=== PATIENT | male | born 1975 | race Caucasian/White ===

== ENCOUNTER 2019-12-26 13:30 | Outpatient (RCR) | payer BC, SELFPAY ==
--- NOTE | 2019-09-28 13:48 | STOPEVAL ---
SPEECH THERAPY INITIAL EVALUATION: Thank you for referring Salinas Jimenez to [facility]. Salinas would benefit from outpatient speech therapy to improve receptive and expression communication x2 week 3. Please review, sign, date and return this plan of care ZAK. I agree with and certify that the following plan of care is medically necessary. Referring Physician Date Attending Provider: PHYSICIAN NOT ON STAFF *ST Outpatient Evaluation Start: 09/28/19 12:46 Freq: Status: Active Protocol: Document 09/28/19 12:30 BECHERERT (Rec: 09/28/19 13:38 BECHERERT [email or web address]) Therapy Assessment Status Assessment Status Assessment Status Evaluation Outpatient Past Medical History Neurological History Hx Cerebrovascular Accident (CVA) Yes Hx Seizures Yes Cardiovascular History Hx Cardiac Disorders No Significant History Respiratory History Hx Tracheostomy Yes: removed end of August 2019 Genitourinary History Hx Genitourinary Disorders No Significant History Musculoskeletal History Hx Musculoskeletal Disorders No Significant History Hematological History Hx Hematological Disorders No Significant History Endocrine History Hx Endocrine Disorders No Significant History HEENT History Hx HEENT Disorders No Significant History Integumentary History Hx Skin Disorders No Significant History Reproductive History Hx Reproductive Disorders No Significant History Psychosocial History Hx Depression Yes Pain History History of Any Previous or Ongoing No Significant History Instance of Pain Anesthesia History Hx Anesthesia Reactions No Significant History Evaluation Information Problem Diagnosis CVA Onset 07-11-2019 Additional Evaluation Detail Pt was admitted to [facility] in [place] X 5-6 weeks; had tracheostomy due to respiratory failure, PEG tube r/t dysphagia. Went to [facility] in [facility] x5 days for rehab. Discharged September 20, 2019. 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 Prior Level of Function Home Setting Home Type House Living Situation With Parent Prior Swallow Level Prior Intake Method Oral Prior Diet Regular (Level 7 Diet) Prior Liquid Consistency Thin (Level 0 Diet) Prior Cognition/Communication
--- NOTE | 2019-09-28 14:28 | PTOPEVAL ---
PHYSICAL THERAPY EVALUATION AND DISCHARGE 09-28-2019 The PT evaluation was performed with Mr. Jimenez today. He demonstrated good dynamic and static standing balance, good LE strength and activity level. 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 Additional PT treatment is not indicated at this time. Discussed with him to continue to increase his activity level and endurance with activity, with rest as needed. He voiced understanding and agreed to discharge from PT services. Thank you for referring Salinas Jimenez to [facility]. Please review, sign, date and return this plan of care [facility]. I agree with and certify that the following plan of care is medically necessary. Referring Physician Date Attending Provider: Dr. Taylor Kumar *PT Outpatient Evaluation Start: 09/28/19 13:34 Document 09/28/19 13:25 ELLEN (Rec: 09/28/19 14:18 ELLEN [id number]) Outpatient Past Medical History Past Medical History Source of Past Medical History Patient Neurological History Hx Seizures Yes: had seizures with hospitalization for ICH Cardiovascular History Hx Hypertension Yes: meds control Respiratory History Hx Other Respiratory Disorders Yes: previous smoker- stop since hospitalization Gastrointestinal History Hx Other Gastrointestinal Disorders Yes: have feeding tube, to be removed next week Genitourinary History Hx Genitourinary Disorders No Significant History Musculoskeletal History Hx Musculoskeletal Disorders No Significant History Endocrine History Hx Endocrine Disorders No Significant History HEENT History Hx HEENT Disorders No Significant History Other History Hx Other Medical Conditions Yes: previous alcolhol abuse- none since hospitalization Evaluation Information Problem Diagnosis CVA, intraparenchymal hemorrhage of brain Onset July 11, 2019 Subjective Information to hospital July 11 2019; was Query Text:As Reported By Patient/ intubated, had seizures, Family feeding tube; in pt rehab and returned home one week ago; Prior Level of Function Activity Level (Last 3 Months) Occupation vegetable ii farmworker Dominance Right Activity of Daily Living Ability Independent Indoor/Home Mobility Independent Community Mobility Independent Stairs Ability Independent Functional Cognition (Planning, Shopping Independent , Taking Medications) Cooking Yes Cleaning Yes Laundry Yes Shopping Yes Driving Yes Medications Home Meds (Include: OTC, RX, Vitamins, HTN meds, zoloft, blood Herbals, Dose, Route,and Frequency) thin
--- NOTE | 2019-09-28 15:18 | OTOPEVAL ---
OCCUPATIONAL THERAPY EVALUATION SUMMARY AND DISCHARGE NOTE Thank you for referring Salinas Jimenez to [facility]. Minimal deficits noted with weakness in the RUE and he is independent with strengthening home program. No care plan initiated as he is being discharged at this time. Please review, sign, date and return this plan of care ZAK. I agree with and certify that the following plan of care is medically necessary. Referring Physician Date Referring Provider: Dr. Taylor Kumar *OT Outpatient Evaluation Therapy Assessment Status Assessment Status Assessment Status Evaluation Outpatient Past Medical History Past Medical History Source of Past Medical History Patient Neurological History Hx Seizures Yes: had seizures with hospitalization for ICH Cardiovascular History Hx Hypertension Yes: meds control Respiratory History Hx Other Respiratory Disorders Yes: previous smoker- stop since hospitalization Gastrointestinal History Hx Other Gastrointestinal Disorders Yes: have feeding tube, to be removed next week Genitourinary History Hx Genitourinary Disorders No Significant History Musculoskeletal History Hx Musculoskeletal Disorders No Significant History Hematological History Hx Hematological Disorders No Significant History Endocrine History Hx Endocrine Disorders No Significant History HEENT History Hx HEENT Disorders No Significant History Integumentary History Hx Skin Disorders No Significant History Reproductive History Hx Reproductive Disorders No Significant History Psychosocial History Hx Depression Yes Pain History History of Any Previous or Ongoing No Significant History Instance of Pain Anesthesia History Hx Anesthesia Reactions No Significant History Other History Hx Other Medical Conditions Yes: previous alcolhol abuse- none since hospitalization Evaluation Information Problem Diagnosis s/p ICH Onset July 11, 2019 Additional Evaluation Detail Pt was admitted to [facility] in [place] for 5-6 weeks; was intubated and had a feeding tube. Went to [facility] in [place] reportedly x5 days for rehab. Discharged September 20, 2019. 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 Subjective Information Patient reports no functional Query Text:As Reported By Patient/ deficits at this time. States Family
--- NOTE | 2019-10-18 16:01 | STOPEVAL ---
SPEECH THERAPY PROGRESS REPORT: Thank you for referring Salinas Jimenez to [facility]. Pt has completed [address]; as a result, he has exhibited improvement in all areas of language. Immediate recall was also noted to be moderate to severely impaired; (R) ear hearing loss may also interfere at times. It is recommended to continue skilled outpatient ST. Please review, sign, date and return this plan of care ZAK. I agree with and certify that the following plan of care is medically necessary. Referring Physician Date Attending Provider: PHYSICIAN NOT ON STAFF *ST Outpatient re-Evaluation Start: 09/28/19 12:46 Freq: Status: Active Protocol: Document 10/18/19 12:30 BECHERERT (Rec: 10/18/19 16:00 BECHERERT [id number]) Therapy Assessment Status Assessment Status Assessment Status Re-evaluation Outpatient Past Medical History Past Medical History Source of Past Medical History Patient Neurological History Hx Seizures Yes: had seizures with hospitalization for ICH Cardiovascular History Hx Hypertension Yes: meds control Respiratory History Hx Other Respiratory Disorders Yes: previous smoker- stop since hospitalization Gastrointestinal History Hx Other Gastrointestinal Disorders Yes: have feeding tube, to be removed next week Genitourinary History Hx Genitourinary Disorders No Significant History Musculoskeletal History Hx Musculoskeletal Disorders No Significant History Hematological History Hx Hematological Disorders No Significant History Endocrine History Hx Endocrine Disorders No Significant History HEENT History Hx HEENT Disorders No Significant History Integumentary History Hx Skin Disorders No Significant History Reproductive History Hx Reproductive Disorders No Significant History Psychosocial History Hx Depression Yes Pain History History of Any Previous or Ongoing No Significant History Instance of Pain Anesthesia History Hx Anesthesia Reactions No Significant History Other History Hx Other Medical Conditions Yes: previous alcohol abuse- none since hospitalization Pain Assessment Timing of Pain Assessment Timing of Pain Assessment Assessment Self Report Self Report Pain Level 0 Pain Score Pain Score 0: Self Report Language Evaluation Auditory Comprehension Response Latency Mild Deficits Factors Limiting Auditory Comprehension Aphasia Overall Auditory Comprehension Ability Mild Deficits Additional Auditory Comprehension Pt is able to follow 2 step Comments directives with 100% accuracy but may need an occasional repetition. Pt is able to foll
--- NOTE | 2019-10-30 14:45 | PCSTNOTE ---
Patient called & cancelled scheduled appointment this date due to having transportation issues.
--- NOTE | 2019-11-15 14:34 | STOPEVAL ---
SPEECH THERAPY PROGRESS REPORT/POC UPDATE: Thank you for referring Salinas Jimenez to [facility]. Salinas has completed [address] visits and has demonstrated continued improvement in all areas of language. Prognosis for further improvement is good; therefore, continued skilled ST is recommended x2 week 4. Please review, sign, date and return this plan of care ZAK. I agree with and certify that the following plan of care is medically necessary. Referring Physician Date Admitting Provider: Attending Provider: PHYSICIAN NOT ON STAFF Referring Provider: * Outpatient Evaluation Start: 09/28/19 12:46 Freq: Status: Active Protocol: Document 11/15/19 12:30 AYDIN (Rec: 11/15/19 13:37 AYDIN [email or web address]) Therapy Assessment Status Assessment Status Assessment Status Re-evaluation Outpatient Past Medical History Past Medical History Source of Past Medical History Patient Neurological History Hx Seizures Yes: had seizures with hospitalization for ICH Cardiovascular History Hx Hypertension Yes: meds control Respiratory History Hx Other Respiratory Disorders Yes: previous smoker- stop since hospitalization Gastrointestinal History Hx Other Gastrointestinal Disorders Yes: have feeding tube, to be removed next week Genitourinary History Hx Genitourinary Disorders No Significant History Musculoskeletal History Hx Musculoskeletal Disorders No Significant History Hematological History Hx Hematological Disorders No Significant History Endocrine History Hx Endocrine Disorders No Significant History HEENT History Hx HEENT Disorders No Significant History Integumentary History Hx Skin Disorders No Significant History Reproductive History Hx Reproductive Disorders No Significant History Psychosocial History Hx Depression Yes Pain History History of Any Previous or Ongoing No Significant History Instance of Pain Anesthesia History Hx Anesthesia Reactions No Significant History Other History Hx Other Medical Conditions Yes: previous alcolhol abuse- none since hospitalization Pain Assessment Timing of Pain Assessment Timing of Pain Assessment Assessment Self Report Self Report Pain Level 0 Pain Score Pain Score 0: Self Report Language Evaluation Auditory Comprehension Body Part Identification (% Accuracy (0- 100 100)) Moderate Yes/No Questions (% Accuracy (0 100 -100)) Complex Yes/No Questions (% Accuracy (0- 80 100)) Auditory Comprehension One-Step 100 Directives (% Accuracy (0-100)) Auditory Comprehension of Two-Step 50 Directives (% Accuracy (0-100)) Auditory Comprehensio
--- NOTE | 2019-11-20 10:23 | PCSTNOTE ---
Patient did not show up for scheduled appointment this date.
--- NOTE | 2019-12-13 09:34 | PCSTNOTE ---
Pt reported that he has not been to therapy due to being readmitted to the hospital stating that the blood clot he had in his head had moved. Pt was not able to elaborate on other details of that hospitalization. Pt was re evaluated on this date.
--- NOTE | 2019-12-13 11:38 | STOPEVAL ---
SPEECH THERAPY PROGRESS REPORT: 12-13-2019 Thank you for referring Salinas Malone Tony Sapp to [facility].? It is felt that the pt would benefit from continued ST services and prognosis for further improvement is good. The patient is scheduled to be seen for therapy?2x/week for 4 weeks. Please review, sign, date and return this plan of care ZAK. I agree with and certify that the following plan of care is medically necessary. Referring Physician Date Attending Provider: PHYSICIAN NOT ON STAFF Taylor Nunn *ST Outpatient RE Evaluation Start: 09/28/19 12:46 Freq: Status: Active Protocol: Document 12/13/19 08:00 BECHERERT (Rec: 12/13/19 10:04 BECHERERT [email or web address]) Therapy Assessment Status Assessment Status Assessment Status Re-evaluation Outpatient Past Medical History Past Medical History Source of Past Medical History Patient Neurological History Hx Seizures Yes: had seizures with hospitalization for ICH Cardiovascular History Hx Hypertension Yes: meds control Respiratory History Hx Other Respiratory Disorders Yes: previous smoker- stop since hospitalization Gastrointestinal History Hx Other Gastrointestinal Disorders Yes: have feeding tube, to be removed next week Genitourinary History Hx Genitourinary Disorders No Significant History Musculoskeletal History Hx Musculoskeletal Disorders No Significant History Hematological History Hx Hematological Disorders No Significant History Endocrine History Hx Endocrine Disorders No Significant History HEENT History Hx HEENT Disorders No Significant History Integumentary History Hx Skin Disorders No Significant History Reproductive History Hx Reproductive Disorders No Significant History Psychosocial History Hx Depression Yes Pain History History of Any Previous or Ongoing No Significant History Instance of Pain Anesthesia History Hx Anesthesia Reactions No Significant History Other History Hx Other Medical Conditions Yes: previous alcolhol abuse- none since hospitalization Pain Assessment Timing of Pain Assessment Timing of Pain Assessment Assessment Self Report Self Report Pain Level 0 Pain Score Pain Score 0: Self Report Language Evaluation Auditory Comprehension Moderate Yes/No Questions (% Accuracy (0 90 -100)) Complex Yes/No Questions (% Accuracy (0- 60 100)) Auditory Comprehension of Two-Step 50 Directives (% Accuracy (0-100)) Response Latency Moderate Deficits Factors Limiting Auditory Comprehension Aphasia Overall Auditory Comprehension Ability Moderate Deficits Additional Auditory Comprehension Accuracies decrease as length Comments
--- NOTE | 2019-12-24 09:54 | PCSTNOTE ---
Addendum entered by JUSTINE Stewart 12/24/19 10:59: DISREGARD, WRONG PATIENT. Original Note: SPEECH THERAPY DISCHARGE: Admitting Provider: Attending Provider: PHYSICIAN NOT ON STAFF Patient:Salinas Jimenez Jr. Date of :1975 [facility]. Deon has completed 15 speech therapy sessions and has exhibited steady improvement and progression towards goal achievement; however, due to upcoming medical procedures and surgery, he has cancelled his remaining scheduled visits. His mother stated he would like to return after he has recovered from these upcoming medical procedures. He will, therefore, be discharged from speech therapy at this time. The goals have been partially met. Please review, sign, date and return this discharge summary ZAK. I have been updated about the patient's current status and I agree with discharge from the above service at this time. Referring Physician Date
--- NOTE | 2019-12-24 15:29 | PCSTNOTE ---
Patient did not show up for scheduled appointment this date.
--- NOTE | 2020-01-02 12:46 | PCSTNOTE ---
This treatment is being continued on visit number [id number]. Please see documentation on both accounts to view progress. Completed interventions, outcomes, and problems have been marked as Inactive to facilitate the copying of the Care plan routine for recurring accounts.
== END 2019-12-27 23:59 | disposition home or self-care (01) ==
LOC: ANHST 13:30
DX: I69.120 Aphasia following nontraumatic intracerebral hemorrhage (principal); I63.9 Cerebral infarction, unspecified; I61.8 Other nontraumatic intracerebral hemorrhage; J96.01 Acute respiratory failure with hypoxia; G93.40 Encephalopathy, unspecified; F10.129 Alcohol abuse with intoxication, unspecified; R13.10 Dysphagia, unspecified; R56.9 Unspecified convulsions; R25.1 Tremor, unspecified; Z93.0 Tracheostomy status; Z93.1 Gastrostomy status
CPT/HCPCS: 92507; 92523; 97110; 97129; 97130; 97161; 97165

== ENCOUNTER 2020-01-25 10:00 | Outpatient (RCR) | payer BC, SELFPAY ==
--- NOTE | 2020-01-02 12:47 | PCSTNOTE ---
The treatment documented on this account is a continuation of the treatment documented on visit number [id number]. Please see documentation on both accounts to view progress. The Plan of Care has been transitioned and updated within the new V#. I have addressed and agree with the discipline specific Problems, Interventions, and Goals for the current certification period. Completed interventions, outcomes, and problems have been marked as Inactive to facilitate the copying of the Care plan routine for recurring accounts.
--- NOTE | 2020-01-14 16:39 | PCSTNOTE ---
Pt's mother called & cancelled scheduled appointment for this week as Salinas is reportedly very sick and being tested for COVID; she will update us with his results and status.
--- NOTE | 2020-01-25 10:48 | STOPEVAL ---
SPEECH THERAPY DISCHARGE: Thank you for referring Salinas Jimenez to [facility].? Salinas has achieved all set treatment goals and has returned to near baseline. Speech therapy will, therefore, be discontinued at this time. Pt was instructed on a HEP with which he verbalized understanding. Please review, sign, date and return this discharge plan. I agree with and certify that the following plan of care is medically necessary. Referring Physician Date Attending Provider: PHYSICIAN NOT ON STAFF *ST Outpatient Evaluation/Discharge Start: 01/02/20 13:16 Freq: Status: Active Protocol: Document 01/25/20 10:09 [email or web address] (Rec: 01/25/20 10:47 BECHERERT [email or web address]) Therapy Assessment Status Assessment Status Assessment Status Re-evaluation Outpatient Past Medical History Neurological History Hx Seizures Yes: had seizures with hospitalization for ICH Cardiovascular History Hx Hypertension Yes: meds control Respiratory History Hx Other Respiratory Disorders Yes: previous smoker- stop since hospitalization Gastrointestinal History Hx Other Gastrointestinal Disorders Yes: have feeding tube, to be removed next week Genitourinary History Hx Genitourinary Disorders No Significant History Musculoskeletal History Hx Musculoskeletal Disorders No Significant History Hematological History Hx Hematological Disorders No Significant History Endocrine History Hx Endocrine Disorders No Significant History HEENT History Hx HEENT Disorders No Significant History Integumentary History Hx Skin Disorders No Significant History Reproductive History Hx Reproductive Disorders No Significant History Psychosocial History Hx Depression Yes Pain History History of Any Previous or Ongoing No Significant History Instance of Pain Anesthesia History Hx Anesthesia Reactions No Significant History Other History Hx Other Medical Conditions Yes: previous alcolhol abuse- none since hospitalization Pain Assessment Timing of Pain Assessment Timing of Pain Assessment Assessment Self Report Self Report Pain Level 0 Pain Score Pain Score 0: Self Report Language Evaluation Auditory Comprehension Complex Yes/No Questions (% Accuracy (0- 100 100)) Auditory Comprehension of Two-Step 100 Directives (% Accuracy (0-100)) Auditory Comprehension of Simple 100 Paragraphs (% Accuracy (0-100)) Auditory Comprehension of Complex 100 Paragraphs (% Accuracy (0-100)) Response Latency Mild Deficits Overall Auditory Comprehension Ability WFL Additional Auditory Comprehension Pt reports feeling that Comments auditory comprehension has
== END 2020-01-28 08:13 | disposition home or self-care (01) ==
LOC: ANHST 10:00
DX: I69.210 Attention and concentration deficit following other nontraumatic intracranial hemorrhage (principal); I63.9 Cerebral infarction, unspecified; I61.8 Other nontraumatic intracerebral hemorrhage; J96.01 Acute respiratory failure with hypoxia; R25.1 Tremor, unspecified; R56.9 Unspecified convulsions; R13.10 Dysphagia, unspecified; G93.40 Encephalopathy, unspecified; F10.129 Alcohol abuse with intoxication, unspecified; Z93.0 Tracheostomy status; Z93.1 Gastrostomy status
CPT/HCPCS: 92507